=== PATIENT | male | born 1965 | race Caucasian/White ===

== ENCOUNTER → 2020-11-28 | Outpatient (CLI) | payer BC ==
[~2020-11-28] MED LIST: COLACE100 MG PO; CYCLOBENZAPRINE5 M3 PO; KETOROLAC10 MG PO; PERCOCET 5-3251 EACH PO; ZOFRAN4 MG PO
[2020-11-28 10:55] LABS: BASO # 0.1 10*3/uL (0.0-0.1); BASO % 0.5 % (0.0-1.0); EOS # 0.4 10*3/uL (0.0-0.4); EOS % 4.2 % (1.0-4.0); HEMATOCRIT 44.4 % (42.0-52.0); LYMPH # 2.1 10*3/uL (1.3-4.4); LYMPH % 22.6 % (27.0-41.0); MEAN CELL VOLUME 90.1 fl (80.0-94.0); MEAN CORPUSCULAR HGB 29.8 pg (27.0-31.0); MEAN CORPUSCULAR HGB CONC 33.1 g/dl (33.0-37.0); MEAN PLATELET VOLUME 8.6 fl (9.6-12.3); MONO % 11.3 % (3.0-9.0); NEUT # 5.6 10*3/uL (2.3-7.9); NEUT % 60.9 % (47.0-73.0); PLATELET COUNT AUTOMATED 237 10*3/uL (130-400); RED BLOOD COUNT 4.93 10*6/uL (4.50-5.90); RED CELL DISTRI WIDTH 13.6 % (0-14.5); RETICULOCYTE % 1.43 % (0.50-2.50); WHITE BLOOD COUNT 9.2 10*3/uL (4.8-10.8)
[2020-11-28 10:58] LABS: BILIRUBIN Negative (Negative); BLOOD 1+ (Negative); CLARITY Clear (Clear); COLOR Yellow (Yellow); GLUCOSE Negative (Negative); KETONE Negative (Negative); LEUKO ESTERASE Trace (Negative); NITRITE Negative (Negative); UROBILINOGEN 0.2 E.U./dl (0.0-1.0)
[2020-11-28 11:13] LABS: ALBUMIN 3.8 gm/dl (3.1-4.5); ALKALINE PHOSPHATASE 67 U/L (45-117); BUN 19 mg/dl (7-24); CHLORIDE 107 mmol/L (98-107); CHOLESTEROL 197 mg/dL (<200); CREATININE 1.05 mg/dL (0.70-1.30); GAMMA GLUTAMYL TRANSPEPTIDASE 14 U/L (15-85); IRON 50 ug/dL (65-175); LDL CHOLESTEROL 134 mg/dL (9-159); POTASSIUM 4.2 mmol/L (3.5-5.1); SGOT/AST 28 IU/L (3-35); SGPT/ALT 31 U/L (12-78); SODIUM 137 mmol/L (136-145); TOTAL IRON BINDING CAPACITY 283 ug/dl (250-450); TOTAL PROTEIN 8.1 gm/dL (6.4-8.2); TRIGLYCERIDES 101 mg/dl (<150)
[2020-11-28 11:31] LABS: FERRITIN 131.1 ng/mL (22.0-322.0); VITAMIN D, 25-HYDROXY 34.9 ng/mL (30-100)
[2020-11-28 12:09] LABS: BACTERIA TRACE; MUCOUS TRACE
== END | disposition home or self-care (01) ==
LOC: LAB 10:36
PROVIDERS: ATTEND Family Medicine
DX: E78.5 Hyperlipidemia, unspecified (principal); R79.89 Other specified abnormal findings of blood chemistry; R53.83 Other fatigue; R74.8 Abnormal levels of other serum enzymes

== ENCOUNTER → 2020-12-20 | Day surgery (SDC) | payer BC ==
[~2020-12-20] VITALS: Ht 172.7 cm; Wt 79.4 kg
[2020-12-20] VITALS (8 sets, daily range): BP systolic 132–160; BP diastolic 75–99
== END | disposition home or self-care (01) ==
LOC: SDC 12-17 12:28
PROVIDERS: ATTEND Surgery
DX: K40.30 Unilateral inguinal hernia, with obstruction, without gangrene, not specified as recurrent (principal); D17.6 Benign lipomatous neoplasm of spermatic cord; F17.210 Nicotine dependence, cigarettes, uncomplicated; Z79.899 Other long term (current) drug therapy; Z20.822 Contact with and (suspected) exposure to COVID-19

== ENCOUNTER 2023-05-10 12:48 | Emergency (ER) | payer BC ==
[~2023-05-10] VITALS: Ht 172.7 cm; Wt 77.1 kg
[2023-05-10 13:35] LABS: HEMATOCRIT 47.6 % (42.0-52.0); MEAN CELL VOLUME 88.5 fl (80.0-94.0); MEAN CORPUSCULAR HGB 29.9 pg (27.0-31.0); MEAN CORPUSCULAR HGB CONC 33.8 g/dl (33.0-37.0); MEAN PLATELET VOLUME 8.8 fl (9.6-12.3); PLATELET COUNT AUTOMATED 187 10*3/uL (130-400); RED BLOOD COUNT 5.38 10*6/uL (4.50-5.90); WHITE BLOOD COUNT 6.4 10*3/uL (4.8-10.8)
[2023-05-10 13:37] LABS: MANUAL DIFF REFLEX YES
[2023-05-10 13:59] LABS: ATYPICAL LYMPHS 1 % (0-0); TOTAL CELLS COUNTED 100 #CELLS
[2023-05-10 14:00] LABS: ACANTHOCYTES FEW; BURR CELLS MODERATE; PLATELET SUFFICIENCY NORMAL (NORMAL)
[2023-05-10 14:04] LABS: ALKALINE PHOSPHATASE 66 U/L (46-116); BUN 17 mg/dl (9-23); CHLORIDE 105 mmol/L (98-107); LIPASE 29 U/L (12-53); POTASSIUM 4.5 mmol/L (3.4-5.1); SGPT/ALT 35 U/L (5-49); TOTAL PROTEIN 7.9 gm/dL (6.0-8.0)
[2023-05-10 14:05] LABS: BILIRUBIN Negative (Negative); BLOOD Negative (Negative); CLARITY Clear (Clear); COLOR Dark Yellow (Yellow); GLUCOSE Negative (Negative); KETONE Trace (Negative); LEUKO ESTERASE Negative (Negative); NITRITE Negative (Negative); SPECIFIC GRAVITY >= 1.030 (1.001-1.030)
[2023-05-10 14:13] LABS: BACTERIA TRACE
[2023-05-10 14:14] LABS: EPITHELIAL CELLS 0-2; FINE GRANULAR CAST 0-2; HYALINE CAST 16-20; RBC 0-2 rbc/hpf (0-2); WBC 0-2 wbc/hpf (0-5)
== END 2023-05-10 16:30 | disposition home or self-care (01) ==
LOC: ED 12:48
PROVIDERS: Family Medicine
DX: R19.7 Diarrhea, unspecified (principal); R11.0 Nausea; Z98.890 Other specified postprocedural states